=== PATIENT | female | born 1995 | race Caucasian/White ===

== ENCOUNTER 2023-02-26 08:00 | Outpatient (CLI) | payer OTHER, SELFPAY | END 2023-02-26 08:01 | disposition home or self-care (01) | LOC: NFLDREF 20:59 | PROVIDERS: PCP Family Medicine; Referring Provider Family Medicine; Visit Provider Family Medicine | DX: Z13.9 Encounter for screening, unspecified (principal); Z13.6 Encounter for screening for cardiovascular disorders | CPT/HCPCS: 80053; 80061 ==

== ENCOUNTER 2024-08-25 16:01 | Outpatient (CLI) | payer BC, SELFPAY ==
--- NOTE | 2024-08-25 16:00 | CRLHL7_ITS ---
For Patients: As a result of the Cures Act, medical imaging exams and procedure reports are released immediately into your electronic medical record. You may view this report before your referring provider. If you have questions, please contact your health care provider. INDICATION: First trimester scan, establish dates. COMPARISON: None. TECHNIQUE: Real-time fonseca-scale imaging of the pelvis was performed. FINDINGS: Sonographic imaging demonstrates a single living intrauterine gestation. The embryo demonstrates a regular cardiac rate measuring 173 beats per minute. The embryo`s crown-rump length measurement of 2.4 cm corresponds to a gestational age of 9 weeks 1 day with a sonographic due date of 03/29/2025. There is a normal-appearing yolk sac. There are no gross abnormalities noted within the embryo at this early state of development. The gestational sac has a normal appearance. There is no evidence of a perigestational hemorrhage. The amount of fluid within the sac appears appropriate for gestational age. The cervix is closed. The myometrium appears normal. The ovaries are of normal size. Corpus luteal cyst right ovary. There are no suspicious fluid collections noted in the cul-de-sac. IMPRESSION: Normal first trimester OB ultrasound exam. Gestational age calculated at 9 weeks 1 day with a sonographic due date of 03/29/2025. Dictated by Bear Singh MD @ 08/25/2024 10:36:15 PM (Electronically Signed)
--- OUTSIDE RECORDS SUMMARY | 2024-08-25 16:04 | XMS_ITS | Encounter Summary ---
Author Organization [facility] Address [address] [place] [address] Care Team Providers Care Biomedical Engineering Aide Name Role Phone Bry Pan MD Primary Care Provider [phone] Encounter Details Date Type Department Care Team (Latest Contact Info) Description 07/29/1998 Orders Only Dara Briggs Social History Tobacco Use Types Packs/Day Years Used Date Smoking Tobacco: Never Assessed Sex and Gender Information Value Date Recorded Sex Assigned at Not on file Gender Identity Not on file Sexual Orientation Not on file documented as of this encounter Plan of Treatment Not on file documented as of this encounter Visit Diagnoses Not on filedocumented in this encounter Care Teams Biomedical Engineering Aide Relationship Specialty Start Date End Date Bry Pan MD [address] [place] [address] PCP - General 02/25/11 11/30/18 documented as of this encounter
--- OUTSIDE RECORDS SUMMARY | 2024-08-25 16:04 | XMS_ITS | Clinical Summary ---
Author Organization [facility] Address [address] [place] [address] Care Team Providers Care Procurement Analyst Name Role Phone Unavailable Primary Care Provider Unavailabl e Source Comments You are receiving this document as you are listed as the primary care provider,follow-up provider, or the patient has been referred to you for consultation.This is in compliance with the Medicare and[facility] EHR Incentive Program,which states Providers who transition their patient to another setting of careor provider of care or refers their patient to another provider of care shouldprovide summary care record for each transition of care or referral. [facility] Allergies Active Allergy Reactions Criticality Noted Date Comments Doxycycline Anaphylaxis High 12/01/2018 Medications Medication Sig Dispensed Refills Start Date End Date Status sertraline (ZOLOFT) 100 MG tabletIndications:Ge neralized Anxiety Disorder,Major Depressive Disorder Take 100 mg by mouth daily. Indications: Generalized Anxiety Disorder, Major Depressive Disorder Active Norgestimate-Eth Estradiol (SPRINTEC 28) 0.25-35 MG-MCG tablet Take 1 Tablet by mouth daily. Active Active Problems Problem Noted Date Diagnosed Date SERGIO (generalized anxiety disorder) 12/01/2018 Current mild episode of jerry r depressive disorder without prior episode 12/01/2018 Immunizations Name Administration Dates Next Due DTP-Hib (Tetramune) 03/12/1997, 6,06/09/1996,1995 DTaP/Hib 03/12/1997, 6,06/09/1996,1995 HepB Adult (Engerix-B, 20+ y rs, 3 dose series) 07/28/1996,02/13/1996,1995 HepB Ped/Adol (0-18 yrs) 07/28/1996,02/13/1996,0 1995 Influenza IIV4 (Quadrivalent ) 0.5mL (16380) 09/06/2018 Influenza, Unspecified Formulation 10/24/1998, MMR 03/12/1997,03/12/1997 OPV, Trivalent (Orimune or tOPV) 997,03/12/1997,06/09/1996,1995,02/13/1996,02/13/1996 Tdap 12/01/2018 Varicella 03/12/1997 Social History Tobacco Use Types Packs/Day Years Used Date Smoking Tobacco: Never Smokeless Tobacco: Never Alcohol Use Standard Drinks/Week Comments Yes 0 (1 standard drink = 0.6 oz pur e alcohol) 1-2 drinks weekly Sex and Gender Information Value Date Recorded Sex Assigned at Not on file Gender Identity Not on file Sexual Orientation Not on file Last Filed Vital Signs Vital Sign Reading Time Taken Comments Blood Pressure 129/81 12/01/2018 6:35 AM HYDROBLASTER Pulse 69 12/01/2018 6:35 AM HYDROBLASTER Temperature 36.9 ??C (98.4 ??F) 12/01/2018 6:35 AM CS T Respiratory Rate 16 12/01/2018 6:35 AM HYDROBLASTER Oxygen Saturation - - Inhaled Oxygen Concentration - - Weight 60.3 kg (133 lb) 12/01/2018 6:35 AM HYDROBLASTER Height 163.8 cm (5' 4.5) 12/01/2018 6:35 AM HYDROBLASTER Body Mass Index 22.48 12/01/2018 6:35 AM HYDROBLASTER Plan of Treatment Health Maintenance Due Date Last Done Comments Hep C Screening (Preventive Services) 1995 IPV (Polio) (5 of 5 - 5-dose series) 1999 03/12/1997, 03/12/1997, 06/09/1996, Additional history exists Varicella (2 of 2 - 2-dose childhood series) 1999 03/12/1997 HIV Screening (Preventive Services) 2011 Adult Preventive Visit 2013 12/22/1998 HPV Vaccine (3 - 3-dose series) 04/21/2020 01/28/2020, 06/25/2019 Cervical Cancer Screening 06/25/2022 06/25/2017 (Com pleted) COVID-19 Vaccine (3 season) 2024 02/11/2021, 01/14/2021 Influenza (#1) 2024 09/08/2020, 12/26, 08/25/2019, Additional history exists DTaP/Tdap/Td (7 - Tdap) 12/01/2028 12/01/19 19, 04/05/2011, 03/12/1997, Additional history exists Zoster/Shingles (1 of 2) 2045 HepB Completed 07/28/1996, 01/1996, 02/13/1996, Additional history exists Hib Completed 03/12/1997, 02/23, 07/28/1996, Additional history exists Chlamydia Discontinued 06/25/2018 (Completed) HepA Aged Out No longer eligi ble based on patient's age to complete this topic MCV4 Aged Out No longer eligi ble based on patient's age to complete this topic Pneumococcal Aged Out No longer eligi ble based on patient's age to complete this topic
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
--- OUTSIDE RECORDS SUMMARY | 2024-08-25 16:04 | XMS_ITS | Clinical Summary ---
Author Organization [employer] [facility] Address [place], [place] [address] Care Team Providers Care Fur Tailor Name Role Phone Pcp, No Primary Care Provider Unavailabl e Allergies Active Allergy Reactions Criticality Noted Date Comments Doxycycline Anaphylaxis High 12/01/2018 Medications Medication Sig Dispensed Refills Start Date End Date Status sertraline (ZOLOFT) 50 mg tablet Take 50 mg by mouth once daily. 3 11/23/2017 Active buPROPion (WELLBUTRIN XL) 150 mg Extended-Release tablet Take 150 mg by mouth once daily. 09/22/2023 Active norgestimate-ethiny l estradioL (ORTHO TRI-CYCLEN) 0.18/0.215/0.25 mg-35 mcg (28) tablet Take 1 Tablet by mouth once daily. 10/26/2023 Active methylPREDNISolone (Medrol, Andrew,) 4 mg tabletIndications:R ight elbow pain,Elbow injury, right, initial encounter,Sprain of right elbow, initial encounter Take by mouth as instructed per packaging. 21 Tablet 01/04/2024 Active Active Problems No known active problems Social History Tobacco Use Types Packs/Day Years Used Date Smoking Tobacco: Never Smokeless Tobacco: Never Tobacco Cessation:Counseling Given: Yes Alcohol Use Standard Drinks/Week Comments Yes 0 (1 standard drink = 0.6 oz pur e alcohol) occ Sex and Gender Information Value Date Recorded Sex Assigned at Not on file Gender Identity Not on file Sexual Orientation Not on file Obstetrics History Last Filed Vital Signs Vital Sign Reading Time Taken Comments Blood Pressure 143/80 01/04/2024 10:34 AM VOICE NETWORK ENGINEER Pulse 86 01/04/2024 10:34 AM VOICE NETWORK ENGINEER Temperature 36.6 ??C (97.8 ??F) 01/04/2024 10:[address] Respiratory Rate 16 01/04/2024 10:34 AM VOICE NETWORK ENGINEER Oxygen Saturation 97% 01/04/2024 10:34 AM VOICE NETWORK ENGINEER Inhaled Oxygen Concentration - - Weight 71.2 kg (157 lb) 01/04/2024 10:34 AM VOICE NETWORK ENGINEER Height 163.2 cm (5' 4.25) 12/30/2017 8:15 AM CS T Body Mass Index 26.74 12/30/2017 8:15 AM VOICE NETWORK ENGINEER Plan of Treatment Health Maintenance Due Date Last Done Comments Tdap 2006 Depression screening for age 12+ 2007 HIV for age 15-65 2010 Hepatitis C screening for age 18-79 2013 Tetanus booster 2015 BMI (ht and wt on same day) for age 18+ 12/30/2018 12/30/2017 COVID-19 vaccine series ( season) 2024 10/18/2023, 12/28/2022, 10/06/2021, Additional history exists Influenza for age 9-49 07/26/2024 Pap test for age 21-65 04/21/2027 , 04/21/2024, 03/14/2023, Additional history exists Pneumococcal series for age 6-64 Aged Out No longer eligible based on patient's age to complete this topic Procedures Procedure Name Priority Date/Time Associated Diagnosis Comments HPV HIGH RISK Routine 04/21/2024 4:03 PM CDT from Last 3 Months or Most Recently Relevant to Health Maintenance Results * HPV HIGH RISK (04/21/2024 4:03 PM CDT) TYPE 16 Negative Negative 04/28/2024 8:10 AM CDT [facility] TYPE 18 Negative Negative 04/28/2024 8:10 AM CDT [facility] OTHER HIGH RISK TYPES Negative Negative 04/28/2024 8:10 AM CDT [facility] Other (Cervical) 04/21/2024 4:03 PM CDT 04/23/2024 3:33 PM CDT Narrative [facility] - 04/28/2024 8:10 AM CDT HPV types 16, 18, 31, 33, 35, 39, 45, 51, 52, 56, 58, 59, 66 and 68 DNA were undetectable or below the pre-set threshold. Methodology: Candida Pasquale 4800 HPV Test February Thiago NAVARRO MICROBIOLOGY [facility] [address] [place] [address], from Last 3 Months or Most Recently Relevant to Health Maintenance Care Teams Fur Tailor Relationship Specialty Start Date End Date Pcp, No . PCP - General 06/25/14
== END 2024-08-25 16:02 | disposition home or self-care (01) ==
LOC: US 16:02
PROVIDERS: PCP Family Medicine; Visit Provider Registered Nurse
DX: Z34.91 Encounter for supervision of normal pregnancy, unspecified, first trimester (principal); Z3A.09 9 weeks gestation of pregnancy
CPT/HCPCS: 76817; 86592; 86703; 86704; 86706; 86762; 86787; 86803; 86850; 86900; 86901; 87086; 87340; 87491; 87591

== ENCOUNTER 2024-10-19 15:46 | Outpatient (CLI) | payer BC, SELFPAY ==
--- OUTSIDE RECORDS SUMMARY | 2024-10-19 15:51 | XMS_ITS | Encounter Summary ---
Author Organization [facility] Address [address] [place] [address] Care Team Providers Care Staple Fiber Washer Name Role Phone Bry Pan MD Primary Care Provider [phone] Encounter Details Date Type Department Care Team (Late st Contact Info) Description 03/20/1999 Office Visit [facility] [place] [address] [place] [address] Devang Tabor MD OPEN WOUND FACE NOS [...] complication documented in this encounter Care Teams Staple Fiber Washer Relationship Specialty Start Date End Date Bry Pan MD [address] [place] [address] PCP - General 02/25/11 11/30/18 documented as of this encounter
--- OUTSIDE RECORDS SUMMARY | 2024-10-19 15:51 | XMS_ITS | Clinical Summary ---
Author Organization [employer] [facility] Address [place], [place] [address] Care Team Providers Care Liquor Gallery Operator Name Role Phone Pcp, No Primary Care [...] Comments Blood Pressure 143/80 01/04/2024 10:34 AM OUTSIDE MACHINIST HELPER Pulse 86 01/04/2024 10:34 AM OUTSIDE MACHINIST HELPER Temperature 36.6 C (97.8 F) 01/04/2024 10:34 AM OUTSIDE MACHINIST HELPER Respiratory Rate 16 01/04/2024 10:34 AM OUTSIDE MACHINIST HELPER Oxygen Saturation 97% 01/04/2024 10:34 AM OUTSIDE MACHINIST HELPER Inhaled Oxygen Concentration - - Weight 71.2 kg (157 lb) 01/04/2024 10:34 AM OUTSIDE MACHINIST HELPER Height 163.2 cm (5' 4.25) 12/30/2017 8:15 AM CS T Body Mass Index 26.74 12/30/2017 8:15 AM OUTSIDE MACHINIST HELPER Plan of Treatment Health Maintenance Due Date Last Done Comments Tdap 2006 Depression screening for age 12+ 2007 HIV for age 15-65 2010 Hepatitis C screening for age 18-79 2013 Tetanus booster 2015 BMI (ht and wt on same day) for age 18+ 12/30/2018 12/30/2017 COVID-19 vaccine series (2023- season) 2024 10/18/2023, 12/28/2022, 10/06/2021, Additional history [...] 16 Negative Negative 04/28/2024 8:10 AM CDT [facility] TYPE 18 Negative Negative 04/28/2024 8:10 AM CDT [facility] OTHER HIGH RISK TYPES Negative Negative 04/28/2024 8:10 AM CDT [facility] Other (Cervical) 04/21/2024 4:03 PM CDT 04/23/2024 3:33 PM CDT [facility] - 04/28/2024 8:10 AM CDT HPV types 16, 18, 31, 33, 35, 39, 45, 51, 52, 56, 58, 59, 66 and 68 DNA were undetectable or below the pre-set threshold. Methodology: Candida Pasquale 4800 HPV Test February Thiago NAVARRO MICROBIOLOGY [facility] [address] [place] [address], from Last 3 Months or Most Recently Relevant to Health Maintenance Care Teams Liquor Gallery Operator Relationship Specialty Start Date End Date Pcp, No . PCP - General 06/25/14
--- OUTSIDE RECORDS SUMMARY | 2024-10-19 15:51 | XMS_ITS | Clinical Summary ---
[facility] Organization [facility] Address [address] [place] [address] Care Team Providers Care Softball Winder Name Role Phone Unavailable Primary Care Provider Unavailabl e Source Comments You are receiving this document as you are listed as the primary care provider,follow-up provider, or the patient has been referred to you for consultation.This is in compliance with the Medicare and[facility] EHR Incentive Program,which states Providers who transition their patient to another setting of careor provider of care or refers their patient to another provider of care shouldprovide summary care record for each transition of care or referral. [facility] Allergies Active Allergy Reactions Criticality Noted Date [...] 07/28/1996,02/13/1996,0 1995 Influenza IIV4 (Quadrivalent ) 0.5mL (21004) 09/06/2018 Influenza, Unspecified Formulation 10/24/1998, MMR 03/12/1997,03/12/1997 [...] Comments Blood Pressure 129/81 12/01/2018 6:35 AM SHAPE BRICK MOLDER Pulse 69 12/01/2018 6:35 AM SHAPE BRICK MOLDER Temperature 36.9 C (98.4 F) 12/01/2018 6:35 AM SHAPE BRICK MOLDER Respiratory Rate 16 12/01/2018 6:35 AM SHAPE BRICK MOLDER Oxygen Saturation - - Inhaled Oxygen Concentration - - Weight 60.3 kg (133 lb) 12/01/2018 6:35 AM SHAPE BRICK MOLDER Height 163.8 cm (5' 4.5) 12/01/2018 6:35 AM SHAPE BRICK MOLDER Body Mass Index 22.48 12/01/2018 6:35 AM SHAPE BRICK MOLDER Plan of Treatment Health Maintenance Due Date [...] Screening 06/25/2022 06/25/2017 (Com pleted) COVID-19 Vaccine ( season) 2024 02/11/2021, 01/14/2021 Influenza (#1) 2024 [...] on patient's age to complete this topic RSV Aged Out No longer eligi ble based on patient's age to complete this topic MCV4 Aged Out No longer eligi ble based on patient's age to complete this topic Pneumococcal Aged Out No longer eligi ble based on patient's age to complete this topic
--- OUTSIDE RECORDS SUMMARY | 2024-10-19 15:51 | XMS_ITS | Encounter Summary ---
Author Organization [facility] Address [address] [place] [address] Care Team Providers Care Maintenance Tech Name Role Phone Bry Pan MD Primary Care Provider [phone] Encounter Details Date Type Department Care Team (Latest Contact Info) Description 07/29/1998 Orders Only Krishna Briggselle Social History Tobacco Use Types Packs/Day Years Used Date Smoking Tobacco: Never Assessed Sex and Gender Information Value Date Recorded Sex Assigned at Not on file Gender Identity Not on file Sexual Orientation Not on file documented as of this encounter Plan of Treatment Not on file documented as of this encounter Visit Diagnoses Not on filedocumented in this encounter Care Teams Maintenance Tech Relationship Specialty Start Date End Date Bry Pan MD [address] [place] [address] PCP - General 02/25/11 11/30/18 documented as of this encounter
== END 2024-10-19 15:47 | disposition home or self-care (01) ==
LOC: NFLDREF 15:49
PROVIDERS: PCP Family Medicine; Visit Provider Advanced Practice Midwife
DX: Z34.92 Encounter for supervision of normal pregnancy, unspecified, second trimester (principal); Z3A.17 17 weeks gestation of pregnancy
CPT/HCPCS: 81511

== ENCOUNTER 2024-11-04 14:58 | Outpatient (CLI) | payer BC, SELFPAY | END 2024-11-04 14:59 | disposition home or self-care (01) | LOC: RAD 14:58 | PROVIDERS: PCP Family Medicine; Visit Provider Advanced Practice Midwife | DX: Q79.69 Other Ehlers-Danlos syndromes (principal) | CPT/HCPCS: 93306 ==

== ENCOUNTER 2024-11-19 10:00 | Outpatient (CLI) | payer BC, SELFPAY ==
--- NOTE | 2024-11-19 10:15 | CRLHL7_ITS ---
For Patients: As a result of the Century Cures Act, medical imaging exams and procedure reports are released immediately into your electronic medical record. You may view this report before your referring provider. If you have questions, please contact your health care provider. INDICATION: Evaluate anatomy. COMPARISON: none TECHNIQUE: Real time fonseca scale imaging of the fetus was performed as well as color Doppler analysis of the umbilical vessels. FINDINGS: Sonographic imaging demonstrates a single living intrauterine gestation. Fetus demonstrates a regular cardiac rate of beats per minute. Fetus has a orientation and lie. The placenta lies without evidence of placenta previa. Amniotic fluid volume appears normal. Single deepest vertical pocket: cm. The cervix is closed and measures cm in length. The composite ultrasound gestational age is calculated at with an estimated sonographic due date of . The estimated weight is grams which lies at the %. The following biometric measurements were obtained: Biparietal diameter: 5.0 cm/21 weeks 1 day 12th% Head circumference: 18.8 cm/21 weeks 1 day 7th% Abdominal circumference: 15.8 cm/20 weeks 6 days 10th% Femur length: 3.2 cm/20 weeks 0 days less than 3rd% The HC/AC ratio measures: 1.20 range (1.06-1.25) Incomplete visualization of the cerebellum, cisterna magna and nuchal fold. Lateral ventricles, CSP, falx, and choroid plexus appear normal. The nose, lips, and facial profile appear normal. The cervical, thoracic and lumbar spine are well visualized and appear normal. Normal 4 chamber heart, nonvisualization of the LVOT and RVOT. The diaphragm and stomach appear normal. The kidneys and bladder also appear normal. There is a normal three-vessel cord and cord insertion site. The four extremities appear normal. Umbilical artery Doppler performed. SD ratio 5.1. IMPRESSION: Sonographic gestational age 20 weeks 6 days and sonographic due date of 04/02/2025. Sonographic age 9 days behind the clinical age. Estimated weight less than 3rd percentile. Abdominal circumference 10th percentile. FL less than 3rd percentile. Incomplete evaluation of the outflow tracts, cerebellum, cisterna magna and nuchal fold. Short-term follow-up recommended. Dictated by Bear Singh MD @ 11/19/2024 11:59:49 AM (Electronically Signed)
== END 2024-11-19 10:01 | disposition home or self-care (01) ==
LOC: US 10:01
PROVIDERS: PCP Family Medicine; Visit Provider Advanced Practice Midwife
DX: Z34.92 Encounter for supervision of normal pregnancy, unspecified, second trimester (principal); Z3A.20 20 weeks gestation of pregnancy
CPT/HCPCS: 76805; 76819; 76820

== ENCOUNTER 2024-12-01 15:58 | Outpatient (CLI) | payer BC, SELFPAY ==
--- NOTE | 2024-12-01 16:00 | CRLHL7_ITS ---
For Patients: As a result of the Century Cures Act, medical imaging exams and procedure reports are released immediately into your electronic medical record. You may view this report before your referring provider. If you have questions, please contact your health care provider. INDICATION: missing views from anatomy scan and IUGR, UA doppler COMPARISON: OB ultrasound on 11/19/2024. TECHNIQUE: Limited obstetric ultrasound follow-up, transabdominal approach, utilizing grayscale and color and spectral Doppler. FINDINGS: Sonographic imaging demonstrates a single living intrauterine gestation. The fetus has a regular cardiac rate of 155 beats per minute. The fetus has a breech orientation. The placenta lies posterior without evidence of placenta previa. Amniotic fluid volume appears normal with single deepest pocket measuring 4.4 centimeters. The cervix is closed and measures 3.4 cm in length. Limited anatomic assessment demonstrates normal appearance of the cerebellum, cisterna magna, nuchal fold, and left and right ventricular outflow tracts. The umbilical artery S/D ratio is elevated at 6.3, < 95th percentile. IMPRESSION: 1. Single living intrauterine gestation in breech position with heart rate 155. 2. Limited anatomic survey demonstrates no intrinsic abnormalities with unremarkable appearance of the cerebellum, cisterna magna, nuchal fold, and left and right ventricular outflow tracts. 3. The umbilical artery S/D ratio is elevated at 6.3, < 95th percentile. Dictated by Ganesh Jain MD @ 12/01/2024 7:51:01 PM (Electronically Signed)
== END 2024-12-01 15:59 | disposition home or self-care (01) ==
LOC: US 15:59
PROVIDERS: PCP Family Medicine; Visit Provider Advanced Practice Midwife
DX: O36.5990 Maternal care for other known or suspected poor fetal growth, unspecified trimester, not applicable or unspecified (principal)
CPT/HCPCS: 76816; 76820

== ENCOUNTER 2024-12-01 16:43 | Outpatient (CLI) | payer BC, SELFPAY ==
[2024-12-01 17:00] VITALS: PULSE 83; O2SAT 97
[2024-12-01 17:05] VITALS: PULSE 75; O2SAT 98
[2024-12-01 17:10] VITALS: PULSE 80; O2SAT 99
[2024-12-01 17:15] VITALS: PULSE 75; O2SAT 99
[2024-12-01 17:18] VITALS: BP 118/69; PULSE 78
--- NOTE | 2024-12-01 18:37 | PC.OBNST ---
NST Note NST Note Start: 12/01/24 16:47 Freq: ONCE Status: Active Protocol: Document 12/01/24 16:47 [facility] (Rec: 12/01/24 18:37 [facility] Desktop) NST Note 1 Para (# of births) 0 EDC 03/24/25 Gestational Age In Weeks & Days 23 Weeks & 6 Days Patient Presented with Complaint(s) of Other Other Complaints NST from clinic for FGR Reactive Yes Appropriate for Gestational Age Yes ERIC Cross Date 12/01/24 Reactive Yes Appropriate for Gestational Age Yes ERIC Middleton Date 12/01/24 OB NST charge Yes Complete NST Note via Write Note Yes The provider's electronic signature indicates the NST is reactive/appropriate for gestational age. *Note to provider: If an addendum is required, open the patient's chart and click on the note under the Nurse/Allied Health tab.
== END 2024-12-01 18:35 | disposition home or self-care (01) ==
LOC: OB OUT 16:43 → OB 16:43
PROVIDERS: PCP Family Medicine; Visit Provider Obstetrics & Gynecology
DX: O36.5920 Maternal care for other known or suspected poor fetal growth, second trimester, not applicable or unspecified (principal); Z3A.23 23 weeks gestation of pregnancy
CPT/HCPCS: 59025; 76816; 76820; G0463

== ENCOUNTER 2024-12-11 07:51 | Outpatient (CLI) | payer BC, SELFPAY ==
--- NOTE | 2024-12-11 08:15 | CRLHL7_ITS ---
For Patients: As a result of the Cures Act, medical imaging exams and procedure reports are released immediately into your electronic medical record. You may view this report before your referring provider. If you have questions, please contact your health care provider. OB ULTRASOUND/FOLLOWUP LIMITED ANNIE by LMP: 03/24/2025. GA: 25 w, 2 d. Single. Comparison: 12/01/2024, 11/26/2024, 11/19/2024. INDICATION: IUGR. TECHNIQUE: Real time fonseca scale imaging of the fetus was performed. Transabdominal. CERVIX: Not visualized. POSITIONING: Transverse. AMNIOTIC FLUID: 4.8 cm. SDP (N: greater than 2 x 1 cm) PLACENTA: Technique: Transabdominal. PLACENTA POSITION: Posterior. DOPPLER: heart rate: 139 bpm. Umbilical artery: 4.8 S/D. Less than 28 w = 5.0. IMPRESSION: 1. S/D ratio 4.8, considered normal at this gestational age. 2. Amniotic fluid single deepest pocket 4.8 cm. Bear Singh M.D. Diagnostic Radiologist [email or web address] Transcribed: 10:48 am DW/Dictated by: Bear Singh MD @ 12/11/2024 9:53:00 AM (Electronically Signed)
== END 2024-12-11 07:52 | disposition home or self-care (01) ==
LOC: US 07:52
PROVIDERS: PCP Family Medicine; Visit Provider Obstetrics & Gynecology
DX: O36.5920 Maternal care for other known or suspected poor fetal growth, second trimester, not applicable or unspecified (principal); Z3A.25 25 weeks gestation of pregnancy
CPT/HCPCS: 76815; 76820

== ENCOUNTER 2024-12-24 08:22 | Outpatient (CLI) | payer BC, SELFPAY | END 2024-12-24 08:23 | disposition home or self-care (01) | LOC: US 08:23 | PROVIDERS: PCP Family Medicine; Visit Provider Obstetrics & Gynecology | DX: O36.5920 Maternal care for other known or suspected poor fetal growth, second trimester, not applicable or unspecified (principal); Z3A.27 27 weeks gestation of pregnancy | CPT/HCPCS: 76815; 76820 ==

== ENCOUNTER 2025-01-01 08:04 | Outpatient (CLI) | payer BC, SELFPAY | END 2025-01-01 08:05 | disposition home or self-care (01) | LOC: US 08:04 | PROVIDERS: PCP Family Medicine; Visit Provider Obstetrics & Gynecology | DX: O36.5920 Maternal care for other known or suspected poor fetal growth, second trimester, not applicable or unspecified (principal) | CPT/HCPCS: 76815; 76817; 76820; 86592 ==

== ENCOUNTER 2025-01-07 08:10 | Outpatient (CLI) | payer BC, SELFPAY | END 2025-01-07 08:11 | disposition home or self-care (01) | LOC: US 08:10 | PROVIDERS: PCP Family Medicine; Visit Provider Obstetrics & Gynecology | DX: O36.5930 Maternal care for other known or suspected poor fetal growth, third trimester, not applicable or unspecified (principal); Z3A.29 29 weeks gestation of pregnancy | CPT/HCPCS: 76816; 76820; 82951; 82952 ==

== ENCOUNTER 2025-01-21 08:24 | Outpatient (CLI) | payer BC, SELFPAY | END 2025-01-21 08:25 | disposition home or self-care (01) | LOC: US 08:24 | PROVIDERS: PCP Family Medicine; Visit Provider Obstetrics & Gynecology | DX: O36.5930 Maternal care for other known or suspected poor fetal growth, third trimester, not applicable or unspecified (principal); Z3A.31 31 weeks gestation of pregnancy | CPT/HCPCS: 76815; 76820 ==

== ENCOUNTER 2025-02-01 15:00 | Outpatient (RCR) | payer BC, SELFPAY | END 2025-06-01 23:59 | disposition home or self-care (01) | PROVIDERS: PCP Family Medicine; Visit Provider Advanced Practice Midwife | DX: Z34.90 Encounter for supervision of normal pregnancy, unspecified, unspecified trimester (principal); Q79.69 Other Ehlers-Danlos syndromes; M54.50 Low back pain, unspecified; K59.00 Constipation, unspecified; R27.8 Other lack of coordination; Z51.89 Encounter for other specified aftercare | CPT/HCPCS: 97110; 97140; 97162; 97535 ==

== ENCOUNTER 2025-02-04 08:23 | Outpatient (CLI) | payer BC, SELFPAY ==
--- NOTE | 2025-02-04 08:15 | CRLHL7_ITS ---
For Patients: As a result of the Century Cures Act, medical imaging exams and procedure reports are released immediately into your electronic medical record. You may view this report before your referring provider. If you have questions, please contact your health care provider. OB ULTRASOUND FOLLOW-UP/LIMITED, CLINICAL HISTORY: IUGR. COMPARISON: 01/21/2025, 01/07/2025, 01/01/2025. TECHNIQUE: Real time fonseca scale imaging of the fetus was performed transabdominally. FINDINGS: ANNIE by LMP: 03/24/2025. GA: 33 weeks, 1 day. Gestation: Single. Cervix: Not visualized. Positioning: Vertex. Amniotic Fluid: 21.0 cm DONNA. 7.4 cm SDP. Placenta: Technique: TA. Placenta Position: Posterior. Dopplers: Heart Rate: 150 bpm. Umbilical Artery: 2.9 s/d 28-34 w <4.0 Biometry: BDP: 8.0 cm, 32 weeks 1 day. 18.6% HC: 29.1 cm, 32 weeks 0 days. 3.2% AC: 28.3 cm, 32 weeks 3 days. 28.6% FL: 5.7 cm, 29 weeks 6 days. <3% EFW: 1791 grams, 3 lb 15 oz. Age by this US: 31 weeks 4 days. ANNIE by this US: 04/04/2025. Percentile by ANNIE: 7.4% IMPRESSION: 1. Sonographic gestational age 31 weeks 4 days and sonographic due date 04/04/2025. Sonographic age is 11 days behind the clinical age. 2. Estimated weight 7th percentile. Abdominal circumference 29th percentile. Femur length less than 3rd percentile. 3. Amniotic fluid index 21.0 cm. 4. Normal S/D ratio 2.9. Bear Singh M.D. Diagnostic Radiologist [email or web address] Transcribed: 11:39 am DW/Dictated by: Bear Singh MD @ 02/04/2025 10:06:00 AM (Electronically Signed)
== END 2025-02-04 08:24 | disposition home or self-care (01) ==
PROVIDERS: PCP Family Medicine; Visit Provider Obstetrics & Gynecology
DX: O36.5930 Maternal care for other known or suspected poor fetal growth, third trimester, not applicable or unspecified (principal); Z3A.33 33 weeks gestation of pregnancy
CPT/HCPCS: 76816; 76820

== ENCOUNTER 2025-02-11 08:01 | Outpatient (CLI) | payer BC, SELFPAY ==
--- NOTE | 2025-02-11 08:15 | CRLHL7_ITS ---
For Patients: As a result of the Century Cures Act, medical imaging exams and procedure reports are released immediately into your electronic medical record. You may view this report before your referring provider. If you have questions, please contact your health care provider. OB ULTRASOND FOLLOW-UP LIMITED, 02/11/2025 CLINICAL HISTORY: IUGR. TECHNIQUE: Real time fonseca scale imaging of the fetus was performed transabdominally. COMPARISON: 02/04/2025, 01/29/2025, 01/11/2025, 01/07/2025. FINDINGS: Gestation: Single. ANNIE by LMP/US: 03/24/2025. CERVIX: Not visualized. POSITIONING: Vertex. AMNIOTIC FLUID: 15.8 cm DONNA. 7.0 cm SDP. PLACENTA: Technique: TA. Placenta Position: Posterior. DOPPLERS: Heart Rate: 138 bpm. Umbilical Artery: 2.5-3.2 S/D. IMPRESSION: Normal S/D ratio measuring between 2.5-3.2. Normal amniotic fluid with DONNA 15.8 cm and single deepest pocket 7.0 cm. Bear Singh M.D. Diagnostic Radiologist [email or web address] Transcribed: 10:41 am DW/Dictated by: Bear Singh MD @ 02/11/2025 9:42:00 AM (Electronically Signed)
== END 2025-02-11 08:02 | disposition home or self-care (01) ==
LOC: US 08:01
PROVIDERS: PCP Family Medicine; Visit Provider Obstetrics & Gynecology
DX: O36.5990 Maternal care for other known or suspected poor fetal growth, unspecified trimester, not applicable or unspecified (principal)
CPT/HCPCS: 76815; 76820

== ENCOUNTER 2025-02-25 08:14 | Outpatient (CLI) | payer BC, SELFPAY ==
--- NOTE | 2025-02-25 08:15 | CRLHL7_ITS ---
For Patients: As a result of the Cures Act, medical imaging exams and procedure reports are released immediately into your electronic medical record. You may view this report before your referring provider. If you have questions, please contact your health care provider. OB ULTRASOUND TRANSABDOMINAL, 02/25/2025 CLINICAL HISTORY: IUGR. TECHNIQUE: Real time fonseca scale imaging of the fetus was performed transabdominal. COMPARISON: 02/18/2025, 02/11/2025, 02/04/2025. ANNIE by LMP: 03/24/2025. GA: 36 weeks 1 day. GESTATION: Single. CERVIX: Not visualized. POSITIONING: Vertex. AMNIOTIC FLUID: 21.0 cm DONNA. 6.4 cm ADP. PLACENTA: Technique: TA. Placenta Position: Posterior. DOPPLERS: Heart Rate: 132 bpm. IMPRESSION: 1. Amniotic fluid DONNA 21.0 cm and single deepest pocket 6.4 cm. 2. Umbilical artery S/D ratio 3.3. Bear Singh M.D. Diagnostic Radiologist [email or web address] Transcribed: 9:17 am DW/Dictated by: Bear Singh MD @ 02/26/2025 6:50:00 AM (Electronically Signed)
== END 2025-02-25 08:15 | disposition home or self-care (01) ==
LOC: US 08:14
PROVIDERS: PCP Family Medicine; Visit Provider Obstetrics & Gynecology
DX: O36.5930 Maternal care for other known or suspected poor fetal growth, third trimester, not applicable or unspecified (principal); Z3A.36 36 weeks gestation of pregnancy
CPT/HCPCS: 76815; 76820; 87081; 87653

== ENCOUNTER 2025-03-02 16:22 | Inpatient (IN) | payer BC, SELFPAY ==
--- NOTE | 2025-03-02 16:33 | W.PM.LDBA ---
Subjective History of Present Illness Date Seen: 03/02/25 Narrative: Patient is being admitted to Labor and Delivery for IOL. She is a 29 year old at 36 weeks, 6 days gestation who presents for induction of labor for indication of severe growth restriction. Her full history and physical was dictated by Dr. Vaca on 02/25/2025. Please see this for details. Specific Issues/Plans G 1 P 0 : [place] Baby: Girl! [place] IUGR: Weekly US/NST/OB # Growth restriction, initially with elevated S/D ratio - normalized - Severe at Dx here, <3%ile but was 5%ile at MFM - Per pt, last MFM with EFW 11%ile and AC 15%ile on 01/25 - 02/04 growth at [facility]: EFW 1791g at 7.4%ile, AC 29%ile. Normal UA dopplers, FHR 150bpm. Vertex. MVP 7.4cm. - [facility] US 02/18 - Recurrence of severe growth restriction. Cephalic, posterior placenta, EFW 1938 g = EFW 2%, AC 7%. Continue weekly NST, amniotic fluid and UA Doppler assessment at [place]. Delivery at 37 weeks, 0 days. 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 Currently stable with report pre on sertraline. 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 3 hr GTT entirely normal [place] test Normal NIPT, carrier negative Flu: 08/25/2024 Covid: 08/25/2024 Tdap: completed with MFM per patient H&P: Dr. Vaca on 02/25/25 Imaging: Sonographic gestational age 20 weeks 6 days and sonographic due date of 04/02/2025. Sonographic age 9 days behind the clinical age. Estimated weight less than 3rd percentile. Abdominal circumference 10th percentile. FL less than 3rd percentile. Incomplete evaluation of the outflow tracts, cerebellum, cisterna magna and nuchal fold. Short-term follow-up recommended. Dictated by Bear Singh MD @ 11/19/2024 11/26/2024 [facility] LVL 2: Breech, SDP 4.9cm, post placenta, no previa. EFW 5%. AC 19%. Elevated UA doppler no absent or reverse end diastolic flow. 12/11/24: Transverse. SDP 4.8cm UA doppler: 4.8 (<28wks </= 5.0). Reassuring for gestational age NST. 12/17 at [facility]: EFW 689g at 2%ile, AC 10%ile, elevated S/D ratio. MVP 4.5cm. 01/28/25 with [facility]: cephalic, EFW 11%, AC 28%, FL 2%, normal fluid. [facility] 02/18/25: Cephalic, posterior placenta, EFW 1938 g = EFW 2%, AC 7%. Normal doppler, normal fluid. Last pap: [Only high-risk abnormal pap results in problem list] OB - Problem Based A/P Additional Plan (1) : Status: Acute (2) IUGR (intrauterine growth restriction): Status: Resolved (3) GBS (group B Streptococcus carrier), +RV culture, currently : Status: Acute Plan Now with favorable cervix. We will begin with low-dose Pitocin just before midnight. Increase to usual Pitocin dose for augmentation at 3:00 a.m.. Begin ampicillin for group B strep prophylaxis at initiation of Pitocin. Continuous monitoring while on Pitocin. Delivery/Labor/Induction Plan Plan: induction Induction method: per pitocin protocol OB Exam Physical Exam Narrative: Physical exam: General: No acute distress Psych: Alert and oriented x3, full affect HEENT: Normocephalic, atraumatic Neck: No cervical adenopathy, no thyromegaly Heart: Regular rate and rhythm, no murmur rub or gallop Lungs: Clear to auscultation bilaterally Abdomen: Soft, nontender, gravid, cephalic lie Lower extremities: No edema or erythema Pelvic exam: cervix 3 cm / 75% / 0 station / anterior / soft, vertex tracing: baseline 120 / accelerations present / no decelerations / moderate variability Infrequent, irregular contractions
[2025-03-02 16:39] VITALS: BP 126/78; PULSE 95; RESP 16; TEMP 36.7
[2025-03-02 16:40] VITALS: PULSE 100; O2SAT 97
[2025-03-02 16:46] VITALS: BMI 27.9
[2025-03-02 23:40] LABS: Basophils Percent Auto 0.3 % (0.0-3.0); Eosinophils Percent Auto 0.8 % (0.0-7.0); Hematocrit 34.1 % (33.0-51.0); Hemoglobin* 11.9 gm/dL (12.0-16.0); Immature Granulocytes Pct Auto 1.1 %; Lymphocytes Percent Auto 19.3 % (20-44); Mean Corpuscular HGB Conc 35 gm/dL (32-36); Mean Corpuscular Hemoglobin 33 pg (26-34); Mean Corpuscular Volume 94 fL (80-100); Monocytes Percent Auto 6.1 % (0.0-11.0); Neutrophils Percent Auto 72.4 % (42.0-72.0); Platelet Count* 210 K/uL (140-440); RDW Coefficient of Variation % 13.2 % (11.5-15.5); Red Blood Count 3.64 m/uL (4.00-5.20); White Blood Count* 15.98 K/uL (4.50-11.00)
[2025-03-02] MEDS: OXYTOCIN 30 unit/500 ML in NS 30 UNIT/500 ML BAG IVPB (23:49)
[2025-03-02] MEDS: LACTATED RINGERS 1000 ML 1,000 ML 124 ML IV (23:49)
[2025-03-02] MEDS: AMPICILLIN 2 GM in 0.9 % SODIUM CHLORIDE Mini-bag 100 ML IVPB (23:50)
[2025-03-02 23:56] VITALS: BP 109/56; PULSE 80; RESP 16; TEMP 36.6
[2025-03-03] VITALS (130 sets, daily range): BP systolic 89–147; BP diastolic 46–84; PULSE 73–144; RESP 16–18; TEMP 36.6–37.3; O2SAT 76–100
[2025-03-03 02:12] LABS: Slide Review Reflex No
[2025-03-03] MEDS: hydrOXYzine pamoate 25 MG CAPSULE 100 MG PO (03:46)
[2025-03-03] MEDS: MORPHINE 10 MG/ML inj IM (03:46)
[2025-03-03] MEDS: AMPICILLIN 1 GM in 0.9 % SODIUM CHLORIDE Mini-bag 100 ML IVPB ×3 (03:47→16:13)
--- NOTE | 2025-03-03 08:04 | P.OBPN_ITS ---
Subjective Time Seen by Provider: 07:20 Date Seen: 03/03/25 Narrative: The patient is coping well with contractions. Pitocin is off (had been up to max of 4 mu/min), now in an active labor pattern. Using nitrous for pain. Objective Vital Signs: Last Vital Signs Temp 98.3 F 03/03/25 07:32 Pulse 97 03/03/25 07:32 Resp 16 03/02/25 23:56 BP 113/63 03/03/25 07:32 Pulse Ox 90 03/03/25 07:24 Pelvic Exam Dilation (cm): 6 Effacement (%): 100 Station: 0 Contractions Monitor mode: External Contraction Frequency: 2 min Contraction pattern: Regular Contraction intensity: Strong/Firm Pitocin Rate (mU/min): 0 Assessment Assessment: active labor Station: 0 Amniotic Membrane Status: AROM (@0728) Status: Category l Heart Rate Baseline: 150 [employer] Variability: Moderate (6-25) Monitor Accelerations: Absent Monitor Decelerations: Early (occassional) Plan Plan: AROM performed with patient consent. Continue present management. Epidural prn or continue nitrous.
[2025-03-03] MEDS: LIDOCAINE 2% (PF) 5 ML VIAL EPIDURAL (08:38)
[2025-03-03] MEDS: LACTATED RINGERS 1000 ML 1,000 ML 121 ML IV (08:45)
--- NOTE | 2025-03-03 08:48 | P.ANBPRC_ITS ---
[facility] Medical History Patellofemoral disorder of left knee ?M22.2X2 - Patellofemoral disorders, left knee (ICD-10) Marito-Danlos syndrome, familial joint laxity type ?Q79.69 - Other Marito-Danlos syndromes (ICD-10) Skin tag ?L91.8 - Other hypertrophic disorders of the skin (ICD-10) Internal derangement of right knee ?M23.91 - Unspecified internal derangement of right knee (ICD-10) Reactive hypoglycemia ?E16.1 - Other hypoglycemia (ICD-10) Dyslipidemia ?E78.5 - Hyperlipidemia, unspecified (ICD-10) Depression ?F32.A - Depression, unspecified (ICD-10) Chronic instability of knee ?M23.50 - Chronic instability of knee, unspecified knee (ICD-10) Anxiety ?F41.9 - Anxiety disorder, unspecified (ICD-10) Acne ?L70.9 - Acne, unspecified (ICD-10) Surgical History No history of previous surgery Family History Sister Marito-Danlos syndrome Anxiety disorder Depression Asthma Mother Anxiety disorder Depression Diabetes Aunt Breast cancer, Onset Age: 35 Paternal Grandmother Diabetes Social History Narrative: engaged, 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, no kids, cats; [place] [employer] [place] exercises regularly- 3 to 4 times a week: Weightlifting walking non-smoker social drinker- 3-4/week What is your current living situation?: I presently have a place to live Problems where you live: no known problems In the past 12 months, utilities in danger of being shut off: no In past 12 months, lack of transportation kept you from medical appts, meetings, work, or getting things needed for daily living: no In the past 12 mos, have been you worried that your food would run out before you had money to buy more?: never true In the past 12 mos, the food you bought just didn't last and you didn't have money to buy more?: never true Smoking Status: Never smoker How often does anyone, including family, friends and others, physically hurt you : never How often does anyone, including family, friends and others, insult or talk down to you: never How often does anyone, including family, friends and others, threaten you with harm: never How often does anyone, including family, friends and others, scream or curse at you: never Meds Home Medications and Allergies Home Medications ?Medication ?Instructions ?Recorded ?Confirmed ?Type docosahexaenoic acid 200 mg 200 mg PO QDAY 08/25/24 03/02/25 History capsule ( DHA) doxylamine succinate 25 mg tablet 25 mg PO QHS PRN 08/25/24 03/02/25 History (Unisom (doxylamine)) pyridoxine (vitamin B6) 10 mg 10 mg PO QDAY 08/25/24 03/02/25 History tablet loratadine 10 mg tablet (Claritin) 10 mg PO DAILY 03/02/25 03/02/25 History Allergies Allergy/AdvReac Type Severity Reaction Status Date / Time doxycycline Allergy Severe Anaphylaxis Verified 03/02/25 16:42 cinnamon Allergy Intermediate Anaphylaxis Verified 03/02/25 16:42 Results Labs Labs: Laboratory Results - last 24 hr 03/02/25 23:00 WBC 15.98 H RBC 3.64 L Hgb 11.9 L Hct 34.1 MCV 94 MCH 33 MCHC 35 RDW Coeff of Cari 13.2 Plt Count 210 Neut % (Auto) 72.4 H Lymph % (Auto) 19.3 L Zavala % (Auto) 6.1 Eos % (Auto) 0.8 Baso % (Auto) 0.3 Neut # (Auto) 11.60 H Lymph # (Auto) 3.10 H Zavala # (Auto) 1.00 H Eos # (Auto) 0.10 Baso # (Auto) 0.00 Abs Immat Gran (auto) 0.20 Imm/Tot Granulo (auto) 1.1 Blood Type AB Positive Antibody Screen NEGATIVE Vital Signs Vital Signs: Last Vital Signs Temp 97.9 F 03/03/25 08:40 Pulse 87 03/03/25 08:46 Resp 16 03/02/25 23:56 BP 116/65 03/03/25 08:46 Pulse Ox 98 03/03/25 08:47 Weight: 76.204 kg Height: 165.1 cm Anesthesia Procedures Epidural Insertion Patient Location: OB Start Time: :00 Stop Time: :00 Start Date: 03/03/25 Stop Date: 03/03/25 Reason for Block: procedure for pain Patient Position: sitting Performed By: Elicia Fitch Preanesthetic Checklist: IV checked, site marked, risks and benefits discussed, monitors and equipment checked, pre-op evaluation and anesthesia consent Prep: chlorhexidine gluconate Monitoring: blood pressure monitoring, continuous pulse oximetry and heart rate Approach: midline Vertebral Space: lumbar (1-5) Epidural Technique: LI saline Needle Type: Tuohy needle Injection Technique: continuous catheter Needle gauge: 17 Needle Length (cm): 10 cm Needle Insertion Depth (cm): 7 Catheter Gauge: 19 Catheter Type: multi-orifice Catheter at skin depth (cm): 17 Test Dose Result: negative and lidocaine 1.5% with epinephrine 1 to 200,000
--- NOTE | 2025-03-03 11:47 | PM.OBPNL ---
Subjective Time Seen by Provider: 11: Date Seen: 03/03/25 Narrative: Patient has now completed position changes to affect rotation. Fetus had been found to be ROP with no descent of vertex after the first 30 minutes of active pushing. Completed hands/knees and right and left side lying release. Patient states that she feels more intense pelvic pressure with contractions now. Objective Vital Signs: Last Vital Signs Temp 99.1 F 03/03/25 10:40 Pulse 92 03/03/25 11:38 Resp 16 03/02/25 23:56 BP 125/65 03/03/25 11:38 Pulse Ox 99 03/03/25 10:27 Pelvic Exam Dilation (cm): 10 Effacement (%): 100 Station: +2 Comments: has rotated, now feels direct OA Contractions Monitor mode: External Contraction Frequency: q2-3 minutes Contraction pattern: Regular Contraction intensity: Strong/Firm Pitocin Rate (mU/min): 0 Assessment Assessment: active labor Station: +2 Amniotic Membrane Status: AROM (@0728) Status: Category ll Heart Rate Baseline: 150 Monitor Accelerations: Absent Monitor Decelerations: Variable (occassional) Plan Plan: Restart active pushing.
[2025-03-03] MEDS: LIDOCAINE 1 % PF 30 ML INJECTION (13:15)
--- NOTE | 2025-03-03 13:37 | W.PM.OBVAGDE ---
OB Procedure Vag Delivery Mother Details Mother Details: The patient is a 29 year-old, 1, Para 0, admitted on 03/02/25 at 36 6/7 weeks gestation for induction of labor secondary to IUGR. Received IV PCN for GBS positive status, total of 3 doses prior to delivery. Para: 0 Weeks Gestation: 37 Admission Date: 03/02/25 Additional Details Amniotic Membrane Status: SROM Amniotic Membrane Rupture Date: 03/03/25 (on 03/03/2025) Amniotic Membrane Rupture Time: 07:28 Amniotic Membrane Fluid Description: Clear Analgesia/Anesthesia Type: Epidural and Nitrous Oxide Waterbirth: No Pitcoin: Yes (infusion to max of 4 mu/min, discontinued prior to AROM) Intrapartal Events: None Induction Method: per pitocin protocol Delivery augmentation: rupture of membranes Labor Onset: 06:30 (on 03/03/2025) Complete: 09:53 Pushin:55 Heart: heart tones during second stage were 130-140s baseline with good variability, some variable decels to 80-90s with pushing. After approximately 30 minutes of active pushing, no descent of vertex was noted, and position was found to be ROP. Patient stopped pushing and maternal repositioning was undertaken, in hands/knees and right and left side lying release. This affected rotation to OA and descent. Pushing reinitiated at 11:33. Delivery Details Delivery Date: 03/03/25 Delivery Time: 13:02 Route of delivery: Infant Gender: Female Infant Viability: Alive; Heart Rate Present Position at Delivery: OA Delivery Details: Delivered via spontaneous vaginal delivery. Infant was placed on maternal abdomen.? Cord was clamped and cut after a 30-60 second delay. Nose and mouth were bulb suctioned.? weight 5 pounds 5 ounces. Additional Details Shoulder Dystocia: No Placenta Delivery Time: 13:07 Placental Delivery Description: Spontaneous (Sent for pathologic review due to IUGR) Delivery repair: Chromic Procedure Done: Global Blood Loss: 120 Laceration: Vaginal - 2nd Degree (and right labial avulsion requiring reapproximation) Episiotomy Description: None Blood Loss Measurement Type: QBL Bakri Used: No Sponge/Need Count Correct: Yes Cord Vessel Description: 3 Vessels Event Summary Status: Mother and were stable after delivery. Disposition: floor
[2025-03-03 15:16] LABS: Hematocrit 32.2 % (33.0-51.0); Hemoglobin* 11.2 gm/dL (12.0-16.0); Mean Corpuscular HGB Conc 35 gm/dL (32-36); Mean Corpuscular Hemoglobin 33 pg (26-34); Mean Corpuscular Volume 94 fL (80-100); Platelet Count* 184 K/uL (140-440); Red Blood Count 3.41 m/uL (4.00-5.20)
[2025-03-03 15:17] LABS: Slide Review Reflex No; White Blood Count* 25.58 K/uL (4.50-11.00)
[2025-03-03 15:23] LABS: Alanine Aminotransferase* 29 U/L (4-35); Aspartate Amino Transferase* 40 U/L (12-35); Creatinine* 0.5 mg/dL (0.5-1.5); Est. Creatinine Clearance* 149.39; Estimated Glomerular Filt Rate 130 ml/min
[2025-03-03] MEDS: ROPIVACAINE 0.2% 100 ml 100 ML 12 MG EPIDURAL (16:13)
[2025-03-03] MEDS: IBUPROFEN 600 MG TABLET PO (18:14)
[2025-03-04 00:46] VITALS: BP 104/74; PULSE 85; RESP 16; TEMP 36.6
[2025-03-04] MEDS: IBUPROFEN 600 MG TABLET PO ×2 (00:54→15:57)
[2025-03-04 04:55] VITALS: BP 95/61; PULSE 77; RESP 16; TEMP 36.6
[2025-03-04 06:12] LABS: Hematocrit 32.5 % (33.0-51.0); Mean Corpuscular HGB Conc 34 gm/dL (32-36); Mean Corpuscular Hemoglobin 32 pg (26-34); Mean Corpuscular Volume 95 fL (80-100); Platelet Count* 172 K/uL (140-440); Red Blood Count 3.42 m/uL (4.00-5.20); White Blood Count* 18.72 K/uL (4.50-11.00)
[2025-03-04 06:13] LABS: Slide Review Reflex No
[2025-03-04 06:25] LABS: Alanine Aminotransferase* 22 U/L (4-35); Aspartate Amino Transferase* 39 U/L (12-35); Blood Urea Nitrogen* 6 mg/dL (5-24); Creatinine* 0.6 mg/dL (0.5-1.5); Est. Creatinine Clearance* 124.49; Estimated Glomerular Filt Rate 125 ml/min
[2025-03-04 08:00] VITALS: BP 113/79; PULSE 72; RESP 16; TEMP 36.6; O2SAT 98
[2025-03-04] MEDS: DOCUSATE SODIUM 100 MG CAPSULE PO (08:28)
[2025-03-04] MEDS: SERTRALINE 50 MG TABLET PO (09:00)
[2025-03-04] MEDS: LORATADINE 10 MG TABLET PO (09:00)
[2025-03-04] MEDS: buPROPion XL 150 MG TABLET PO (09:00)
[2025-03-04 09:15] LABS: Rapid Plasma Reagin (RPR) Non Reactive (Non Reactive)
--- NOTE | 2025-03-04 11:08 | PM.ANPOST ---
Post Anesthesia Note Post Anesthesia Note Patient seen: Inpatient Respiratory Status: adequate Cardiovascular Status: adequate Mental Status: baseline Pain: adequate Temp: baseline Anesthetic awareness: N/A Complications: none Follow care: none
[2025-03-04 13:15] VITALS: BP 115/72; PULSE 66; RESP 16; TEMP 36.6; O2SAT 99
[2025-03-04 14:23] LABS: Hematocrit 31.6 % (33.0-51.0); Hemoglobin* 10.7 gm/dL (12.0-16.0); Mean Corpuscular HGB Conc 34 gm/dL (32-36); Mean Corpuscular Hemoglobin 32 pg (26-34); Mean Corpuscular Volume 95 fL (80-100); Platelet Count* 171 K/uL (140-440); Red Blood Count 3.32 m/uL (4.00-5.20); White Blood Count* 15.05 K/uL (4.50-11.00)
[2025-03-04 14:25] LABS: Slide Review Reflex No
[2025-03-04] MEDS: METOCLOPRAMIDE 10 MG TABLET PO (14:31)
[2025-03-04 14:34] LABS: Alanine Aminotransferase* 22 U/L (4-35); Aspartate Amino Transferase* 36 U/L (12-35); Blood Urea Nitrogen* 8 mg/dL (5-24); Creatinine* 0.6 mg/dL (0.5-1.5); Est. Creatinine Clearance* 124.49; Estimated Glomerular Filt Rate 125 ml/min
--- NOTE | 2025-03-04 14:48 | P.DS_ITS ---
DS: Providers Provider Date Seen: 03/04/25 Date of admission: 03/02/25 16:22 Primary care physician: Elsa Santiago MD Admitting Clinician: Kayla Smith MD Attending Physician on discharge: Payton Persaud CNM Date of Discharge: 03/04/25 DS: Diagnosis Discharge Diagnosis (1) care and examination of lactating mother: Status: Acute (2) Elevated ALT measurement: Status: Acute Exam Narrative: Exam Narrative: GENERAL APPEARANCE:? normal affect, alert, no distress MOOD:? appropriate CHEST:? clear to auscultation HEART:? regular rate and rhythm ABDOMEN:? soft, non-tender the uterine fundus is firm At Umbilicus, Midline and is appropriate for the stage of recovery. PERINEUM:? mild edema of the perineum, there is a Perineal Laceration,? 2nd degree that is healing well. EXTREMITIES:? normal and trace edema Const: Vital Signs, click to edit/add: Vital Signs - 24 hr 03/03/25 14:50 03/03/25 14:50 03/03/25 14:51 Temperature Pulse Rate 115 H Pulse Rate [Blood Pressure Cuff] Respiratory Rate 18 Blood Pressure 115/68 Blood Pressure [Le ft Arm] Pulse Oximetry 99 Oxygen Delivery Me thod 03/03/25 15:05 03/03/25 15:06 03/03/25 18:10 Temperature 98.5 F Pulse Rate 106 H Pulse Rate [Blood Pressure Cuff] Respiratory Rate 18 Blood Pressure 118/63 Blood Pressure [Le ft Arm] Pulse Oximetry Oxygen Delivery Me thod 03/03/25 20:25 03/04/25 00:46 03/04/25 04:55 Temperature 98.4 F 97.8 F 97.8 F Pulse Rate Pulse Rate [Blood Pressure Cuff] 85 85 77 Respiratory Rate 16 16 16 Blood Pressure Blood Pressure [Le ft Arm] 99/63 104/74 95/61 Pulse Oximetry Oxygen Delivery Me thod Room Air Room Air Room Air 03/04/25 08:00 Temperature 97.8 F Pulse Rate Pulse Rate [Blood Pressure Cuff] 72 Respiratory Rate 16 Blood Pressure Blood Pressure [Le ft Arm] 113/79 Pulse Oximetry 98 Oxygen Delivery Me thod Room Air Documenting provider has reviewed patient's vital signs: yes OB - DS: Summary Hospital Course Hospital Course: Florentin is a 29 y.o. who was admitted to [facility] & [facility] for induction of labor for IUGR. ?She had an uncomplicated NVD.?The patient feels well. ?The pain is well controlled with current medications. ?She has recently complained of headache, reports she has a history of headache and this feels similar to past ones. She has had an elevated AST but all her other lab work is normal, and AST is trending down. Blood pressures are all normal, she did have two elevations >140/90 but had normal repeat readings in 15 minutes during her stay. Currently does not meet criteria for hypertension disorder. ?She is breast feeding and reports things are going well. Has been supplementing and will return tomorrow for weight check and help with if needed.? the patient has done well.? Vitals have been stable.? She has remained afebrile.? Has a good appetite, is tolerating a general diet. ?She is voiding without difficulty.? She is passing gas and has not had a bowel movement.? She is ambulating and denies any dizziness.? Has Small amount of rubra lochia. ?She is planning Mini pill for prevention. She is requesting discharge this evening if infant passes the car seat trial. Peripartum Data delivery method: Vaginal Laceration description: Perineal - 2nd Degree complications: none Gender: Female Infant Discharge Plan: Home Time Spent with Patient Time attestation: Total time spent providing and/or coordinating discharge services: Discharge Plan Discharge Disposition: Home, Self-Care Date of Admission: 03/02/25 16:22 Attending Provider on Discharge: Payton Persaud Consulting Providers: Chuyita Vail Primary Care Provider: Elsa Santiago Condition: Stable Anticipated Discharge Date/Time: 03/04/25 20:00 Discharge Medications: New acetaminophen 500 mg Tablet 1,000 mg PO Q6H PRNQty: 0 0RF docusate sodium 100 mg Capsule 100 mg PO DAILY Qty: 90 0RF ibuprofen 600 mg Tablet 600 mg PO Q6H PRNQty: 60 0RF metoclopramide HCl [Reglan] 10 mg tablet 10 mg PO Q6H PRN (Reason: headache) Qty: 10 0RF Continued bupropion HCl 150 mg tablet extended release 24 hr 150 mg PO DAILY Qty: 90 3RF sertraline 50 mg tablet 50 mg PO DAILY Qty: 90 3RF DHA 200 mg capsule 200 mg PO QDAY Unisom (doxylamine) 25 mg tablet 25 mg PO QHS PRN pyridoxine (vitamin B6) 10 mg tablet 10 mg PO QDAY loratadine [Claritin] 10 mg tablet 10 mg PO DAILY Discharge Orders: Discharge Order (Routine); Ordered 03/04/25 Ordered By: Payton Persaud Patient Education: OB Care, OB Over the Counter Medication Information, OB Vaginal/Breast Feeding Additional Instructions: Discharge instructions were reviewed with the patient including signs and symptoms of infection and home going medications Nothing vaginally for 6 weeks: no tampons or intercourse Off Work or School for 6 weeks Symptoms to report to doctor: * Bleeding that saturates more than one pad per hour * Passing clots larger than the size of a golf ball * Pain not relieved by prescribed medication * Fever above 100.4 degrees Fahrenheit * A foul vaginal odor * Difficulty in emotions, mood, and functions * Thoughts of hurting yourself and/or * Painful, reddened area in your breast * Any drainage, redness, or tenderness in your IV/epidural site * Severe headache that doesn't improve after taking medications * Changes in vision, including temporary loss of vision, blurred vision, and/or light sensitivity * Upper abdominal pain (usually under ribs on the right side) * Decrease in urination or painful, frequent urinating * Chest pain * Shortness of breath * Tenderness or pain with redness and/swelling in the calf(s) of your leg 2-week visit: discuss infant feeding concerns, review control options and screen for anxiety/depression. 6-week visit for an annual exam. consultation services are available to all mothers and babies for the first year after delivery.? To make an appointment, please call [phone]. Activity Level: Activity as Tolerated Discharge Diet: Regular Follow Up Appointments: [facility] [Provider Group] Forms: MyHealth Info Instructions
== END 2025-03-04 21:03 | disposition home or self-care (01) | DRG 560 ==
PROVIDERS: Advanced Practice Midwife; Obstetrics & Gynecology; Admitting Provider Obstetrics & Gynecology; PCP Family Medicine; Visit Provider Obstetrics & Gynecology
DX: O70.1 Second degree perineal laceration during delivery (principal); Z3A.36 36 weeks gestation of pregnancy; Z37.0 Single live birth; O99.344 Other mental disorders complicating childbirth; F41.9 Anxiety disorder, unspecified; F32.A Depression, unspecified; O99.824 Streptococcus B carrier state complicating childbirth; Q79.69 Other Ehlers-Danlos syndromes; R74.01 Elevation of levels of liver transaminase levels; R51.9 Headache, unspecified
CPT/HCPCS: 01967; 36415; 82565; 84450; 84460; 84520; 85018; 85025; 85027; 86592; 86850; 86900; 86901; 88307; G0463; A9270; J0290; J2003; J2270; J2795; J7120

== ENCOUNTER 2025-04-01 12:53 | Outpatient (CLI) | payer BC, SELFPAY ==
--- NOTE | 2025-04-01 14:56 | W.PM.LAC.MC ---
Consult Note - Mom Date of Visit Date of visit: 04/01/25 Reason for consultation: Assistance Needed and Breast/Nipple Issue (nipple/milk bleb) Visit Code: Visit Patient's Information Phone number: [phone] Para: 1 Allergies doxycycline Allergy (Severe, Verified 03/02/25 16:42) Anaphylaxis cinnamon Allergy (Intermediate, Verified 03/02/25 16:42) Anaphylaxis Mother's Medical History: Medical History (Updated 04/01/25 @ 14:08 by Payton Persaud CNM) IUGR (intrauterine growth restriction) Patellofemoral disorder of left knee ?M22.2X2 - Patellofemoral disorders, left knee (ICD-10) Marito-Danlos syndrome, familial joint laxity type ?Q79.69 - Other Marito-Danlos syndromes (ICD-10) Skin tag ?L91.8 - Other hypertrophic disorders of the skin (ICD-10) Internal derangement of right knee ?M23.91 - Unspecified internal derangement of right knee (ICD-10) Reactive hypoglycemia ?E16.1 - Other hypoglycemia (ICD-10) Dyslipidemia ?E78.5 - Hyperlipidemia, unspecified (ICD-10) Depression ?F32.A - Depression, unspecified (ICD-10) Chronic instability of knee ?M23.50 - Chronic instability of knee, unspecified knee (ICD-10) Anxiety ?F41.9 - Anxiety disorder, unspecified (ICD-10) Acne ?L70.9 - Acne, unspecified (ICD-10) Work Plans: will return to work Jun 2025; home until then Delivery Information Gestational Age: 37 Gestational Weight For Age: AGA Weight: 2.41 kg Baby's Information Baby's Age at Visit: 4 weeks +1 day Baby's Provider or Clinic: [facility] Jaundice: No Past Experience Past Experience: No Current Frequency of Day Feedings: every 2.5-3 hours Frequency of Night Feedings: 3-4 hours at night Both Breasts: Yes (both offered) Suck: strong, gets sleepy after about 10 minutes Latch: mostly ok, painful with the nipple bleb Length of Time: about 10 min ea side Goals: 1 year Pumping Pumping: Yes (Flange size 19mm; suction level 3-4 for both [place] Go and Spectra pumps) Quantity Pumped: 2-4 oz total 1-2 times/day Supplementing EBM Supplement: Yes (takes 1-2 oz via bottle 1-2 times/day) Formula Supplement: No Baby Elimination Number of Wet Diapers a Day: ea feeding Number of BM a Day: most feedings Breast/Nipple Condition Breast Information: Breasts are symmetrical with rounded lower quadrants, intramammary distance is less than 1.5 inches. No erythema, edema or plugged ducts palpated. Nipples are supple, everted prior to feeding. RIGHT nipple round, intact. LEFT nipple round, with 2 papules noted; one is at the 4 o'clock position (1mm in diameter) and the other at the 9 o'clock position (2mm in diameter). Breast Shape: Round Engorgement: No Maternal Nipple Condition - Left: Common Nipple Maternal Nipple Condition - Right: Common Nipple Sore Nipples: Yes (slight due to the milk bleb) Interventions for Sore Nipples: Lansinoh/Nipple Cream Baby Assessment Skin: Normal Tongue/frenulum: Normal/elastic Palate: Average Lips: Relaxed and Symmetrical Jaw Alignment: Symmetrical Mucosa: [place], moist Onsite Observation Pre-Feed weight: 2.41 kg Post-Feed weight: 2474 kg Milk Transferred (mL): 64 (10 min on left adelia, 12 min on right breast) Position: Cross cradle (left breast) and Football (right breast) Attachment/latch-on achieved: Easily Suck pattern: Suck burst and normal rest Swallow: Audible, consistent Behavior following feed: Relaxed, sleepy Pre-Nursing Left Nipple: Within Normal Limits (except for milk blister) Pre-Nursing Right Nipple: Within Normal Limits Post-Nursing Left Nipple: Within Normal Limits Post-Nursing Right Nipple: Within Normal Limits Assessments/Interventions Assessments/Interventions: observation Aden latched well to mom's LEFT breast in the cross cradle position; mom described it as slightly painful/pinchy. Helped baby adjust her latch by gently flipping her bottom lip out more to allow for a deeper latch onto mom's breast and mom reports increased comfort with this maneuver. Aden transferred 32ml of milk in 8 minutes time Mom then latched aden to her RIGHT breast in cross cradle; aden nursed for about 3 minutes and was sleepy. Mom attempted to relatch multiple times but tilae reluctant; aden weighed and only transferred 4 ml. While mom holding baby, baby rooting but again won't sustain a latch. Suggested mom could try the football hold; mom expressed hesitancy to use this hold as to not drop the baby. Using the BreastFriend pillow, turned the pillow to help support baby. Aden then latched to her RIGHT breast and sustained nursing for 10 minutes. Adne transferred a total of 32 ml of milk from the right breast. Total transferred=64 mls Milk bleb treatment Mom has already tried the following: warm compress, lanolin, gentle exfoliation, ibuprofen for discomfort Suggested treatment: Add Triamcinolone (spoke with Payton Persaud about Rx'ing) BID to soften the skin covering the milk bleb Warm compress prior to nursing Cool packs to the breast after nursing to decrease the inflammatory process When pumping, suggest collect just the amount of milk she needs for a bottle feeding or a bit more to prevent oversupply/stress to the breast (aden currently take 2 oz supplement but mom is pumping 4-8oz extra/day). Continue to try and exfoliate the bleb; expect a string of milk may eventually come out and not to be alarmed. Discussed sunflower lecithin i to loosen milk if triamcinolone alone not working Education provided: Asymmetric latch technique for wide/deep latch to increase milk, Transfer for baby and increase comfort for mom (be sure to keep bottom p flanged out for increased comfort for mom while milk bleb heals), Supply/demand nature of milk supply and Pumping for milk management (pump only as needed so as not to stress the breast as the milk blebs are healing) Handouts Provided: Milk blister treatment Follow-Up Suggested follow up: Appointment as needed Time Spent Time spent with patient (min): 60 Meds Home Medications and Allergies Home Medications ?Medication ?Instructions ?Recorded ?Confirmed ?Type docosahexaenoic acid 200 mg 200 mg PO QDAY 08/25/24 03/02/25 History capsule ( DHA) doxylamine succinate 25 mg tablet 25 mg PO QHS PRN 08/25/24 03/02/25 History (Unisom (doxylamine)) pyridoxine (vitamin B6) 10 mg 10 mg PO QDAY 08/25/24 03/02/25 History tablet loratadine 10 mg tablet (Claritin) 10 mg PO DAILY 03/02/25 03/02/25 History Allergies Allergy/AdvReac Type Severity Reaction Status Date / Time doxycycline Allergy Severe Anaphylaxis Verified 03/02/25 16:42 cinnamon Allergy Intermediate Anaphylaxis Verified 03/02/25 16:42
== END 2025-04-01 12:54 | disposition home or self-care (01) ==
PROVIDERS: PCP Family Medicine; Visit Provider Obstetrics & Gynecology
DX: Z39.1 Encounter for care and examination of lactating mother (principal)
CPT/HCPCS: G0463

== ENCOUNTER 2025-04-16 16:09 | Outpatient (CLI) | payer BC, SELFPAY ==
[2025-04-22 06:48] LABS: HPV Source Cervix; HPV, High Risk by TMA Not Detected
== END 2025-04-16 16:10 | disposition home or self-care (01) ==
PROVIDERS: PCP Family Medicine; Visit Provider Registered Nurse
DX: E04.9 Nontoxic goiter, unspecified (principal); Z12.4 Encounter for screening for malignant neoplasm of cervix; Z11.51 Encounter for screening for human papillomavirus (HPV)
CPT/HCPCS: 84443; 87624; 87625; 88141; 88142

== ENCOUNTER 2025-05-10 11:16 | Outpatient (CLI) | payer BC, SELFPAY ==
--- NOTE | 2025-05-10 11:30 | CRLHL7_ITS ---
For Patients: As a result of the Century Cures Act, medical imaging exams and procedure reports are released immediately into your electronic medical record. You may view this report before your referring provider. If you have questions, please contact your health care provider. INDICATION: Enlarged thyroid on physical exam COMPARISON: none TECHNIQUE: Brown scale and color Doppler images were acquired of the thyroid gland. FINDINGS: The thyroid gland demonstrates normal uniform echogenicity and has a smooth outer contour. The right lobe measures 5.1 x 1.1 x 1.2 cm and the left lobe measures 4.9 x 0.8 x 1.3 cm in size. There are no suspicious masses or nodules. The color Doppler images demonstrate normal vascularity. There is no evidence of cervical lymphadenopathy or parathyroid mass. IMPRESSION: Normal thyroid ultrasound. Dictated by Bear Singh MD @ 05/10/2025 3:50:08 PM (Electronically Signed)
== END 2025-05-10 11:17 | disposition home or self-care (01) ==
PROVIDERS: PCP Family Medicine; Visit Provider Registered Nurse
DX: E04.9 Nontoxic goiter, unspecified (principal)
CPT/HCPCS: 76536